=== PATIENT | female | born 1945 | race Caucasian/White ===

== ENCOUNTER 2016-06-11 16:30 | Emergency (ER) | payer MEDICARE ==
[~2016-06-11] VITALS: Ht 165.1 cm; Wt 70.2 kg
[~2016-06-11 16:30] MED LIST: CLON0.5T PO; DILT120C3 PO; GREE1CAP PO; LAMO25TA3 PO; LITH300C45 PO; VALS160T13 PO
[2016-06-11 16:32] VITALS: Ht 165.1 cm; Wt 70.2 kg
--- OUTSIDE RECORDS SUMMARY | 2016-06-11 16:35 | XMS REPORT | Continuity of Care Document ---
Author Author [facility] Organization [facility] Address Unknown Phone Unavailable Support Name Relationship Address Phone MANDA GUADARRAMA MD Caregiver [address] [facility] [place] [address] BARBARA ARDNO MD Caregiver [address] [facility] [place], [place] [phone] KAMALA VANEGAS Next Of Kin [address] [id number] Insurance Providers Payer Name Policy Number Subscriber Name Relationship Medicare [id number] Kasey Vanegas 19 Self Everencemma [id number] Kasey Vanegas 19 Self Advance Directives Directive Response Recorded Date/Time Advanced Directives Type None 08/20/13 8:45am Problems Medical Problems Problem Onset Date Status Chemical conjunctivitis Unknown Active Arrhythmia Unknown Active Arrhythmia Unknown Active Medications Medication Dose Route Sig Days/Qty Instructions Order Date Discontinued Date Status Valsartan 160 Mg PO DAILY 09/21/11 Active [place] Carbonate 300 Mg PO THREE TIMES A DAY 09/21/11 Active Green Tea [place] Extract 1 Each PO DAILY 09/21/11 Active Social History Social History Problem Response Recorded Date/Time Smoking Status Never smoker 08/20/2013 8:57am Chewing Tobacco Status No 08/20/2013 8:57am Hx Alcohol Use No 08/20/2013 8:57am Hospital Discharge Instructions No hospital discharge instructions. Plan of Care No plan of care. Functional Status Query Response Date Recorded Mental Status Alert August 20, 2013 9:56am Allergies, Adverse Reactions, Alerts Allergen Type Severity Reaction Status Last Updated Sulfa (Sulfonamide Antibiotics) Allergy Unknown Active 08/20/13 Immunizations No immunization records. Vital Signs Acute Vital Signs Vital Response Date/Time Temperature (Fahrenheit) 97.6 deg F (96.8 - 99.1) Temperature (Calculated Celsius) 36.24150 degrees C (36.0 - 37.3) Pulse Rate (adult) 78 bpm (60 - 100) Respiratory Rate 18 breaths/min (10 - 20) O2 Sat by Pulse Oximetry 97 % (90 - 100) Blood Pressure 127/59 mm Hg Height 5 ft 5 in Weight 186 lb Body Mass Index 31.0 kg/m^2 Results Test Source Date Result Interp. Ref. Range Comments Alanine Aminotransferase (ALT/SGPT) August 20, 2013 9:11am 34 U/L N 9-52 Albumin August 20, 2013 9:11am 4.2 G/DL N 3.5-5.0 Albumin/Globulin Ratio August 20, 2013 9:11am 1.4 RATIO N 1.1-2.2 Alkaline Phosphatase August 20, 2013 9:11am 84 U/L N 38-126 Anion Gap August 20, 2013 9:11am 14 MEQ/L N 5-15 Aspartate Amino Transf (AST/SGOT) August 20, 2013 9:11am 24 U/L N 14-36 BUN/Creatinine Ratio August 20, 2013 9:11am 20 RATIO N 6-26 Basophils # (Auto) August 20, 2013 9:11am 0.0 T/MM3 N 0-0.2 Basophils (%) (Auto) August 20, 2013 9:11am 0.3 % N 0-2 Blood Urea Nitrogen August 20, 2013 9:11am 20.0 MG/DL H 7-17 Calcium Level August 20, 2013 9:11am 9.8 MG/DL N 8.4-10.2 Calculated Osmolality August 20, 2013 9:11am 287 MOSM/KG H 261-280 Carbon Dioxide Level August 20, 2013 9:11am 22 MEQ/L N 22-30 Chloride Level August 20, 2013 9:11am 112 MEQ/L H 98-107 Cholesterol Level October 05, 2007 5:30am 261 MG/DL H 120-200 Cholesterol/HDL Ratio October 05, 2007 5:30am 6.0 RATIO H 0-4.0 Creatine Kinase MB October 04, 2007 7:15pm 0.2 NG/ML N 0-3.4 Creatinine August 20, 2013 9:11am 1.0 MG/DL N 0.7-1.2 Eosinophils # (Auto) August 20, 2013 9:11am 0.2 T/MM3 N 0-0.5 Eosinophils (%) (Auto) August 20, 2013 9:11am 2.4 % N 0-4 Ferritin December 11, 2007 7:57am 200 NG/ML N 10-265 Free Thyroxine December 11, 2007 7:57am 0.60 NG/DL L 0.78-2.19 Free Triiodothyronine December 11, 2007 7:57am 2.84 PG/ML N 2.77-5.27 Globulin August 20, 2013 9:11am 3.0 G/DL N 2.4-3.6 Glucose Level August 20, 2013 9:11am 97 MG/DL N 65-110 Hematocrit August 20, 2013 9:11am 39.8 % N 36-46 Hemoglobin August 20, 2013 9:11am 13.2 GM/DL N 12-16 Hemoglobin A1c October 05, 2007 5:30am 5.2 % L 6-7 <6.0 NON-DIABETIC RANGE6.0-7.0 ADA THERAPEUTIC RANGE >7.0 ACTION SUGGESTED Iron Level December 11, 2007 7:57am 72 UG/DL N 37-170 LDL Cholesterol, Calculated October 05, 2007 5:30am 139.0 - [place] Level October 04, 2007 5:50am 0.8 MMOL/L N 0.6-1.2 Lymphocytes # (Auto) August 20, 2013 9:11am 1.9 T/MM3 N 1-4.8 Lymphocytes (%) (Auto) August 20, 2013 9:11am 27.7 % N 23-45 Magnesium Level October 04, 2007 5:50am 2.4 MG/DL H 1.6-2.3 Mean Corpuscular Hemoglobin August 20, 2013 9:11am 27.3 UUG N 26-34 Mean Corpuscular Hemoglobin Concent August 20, 2013 9:11am 33.2 GM/DL N 31 -37 Mean Corpuscular Volume August 20, 2013 9:11am 82.2 UM3 N 80-100 Mean Platelet Volume August 20, 2013 9:11am 9.2 UM3 L 9.4-12.4 Monocytes # (Auto) August 20, 2013 9:11am 0.6 T/MM3 N 0-0.8 Monocytes (%) (Auto) August 20, 2013 9:11am 8.5 % N 0-9.0 Neutrophils # (Auto) August 20, 2013 9:11am 4.2 T/MM3 N 1.8-7.7 Neutrophils (%) (Auto) August 20, 2013 9:11am 60.8 % N 33-66 Percent Iron Saturation December 11, 2007 7:57am 23 % N 9-55 Platelet Count August 20, 2013 9:11am 198 T/MM3 N 130-400 Potassium Level August 20, 2013 9:11am 4.1 MEQ/L N 3.6-5 RDW Standard Deviation August 20, 2013 9:11am 48.9 FL N 36.9-50.2 Red Blood Count August 20, 2013 9:11am 4.84 M/MM3 N 4.00-5.20 Sodium Level August 20, 2013 9:11am 148 MEQ/L H 134-144 Thyroid Stimulating Hormone (TSH) December 11, 2007 7:57am 4.02 MIU/ML N 0.47-4.68 Total Bilirubin August 20, 2013 9:11am 0.20 MG/DL N 0.20-1.30 Total Creatine Kinase October 04, 2007 7:15pm 93 U/L N 30-135 Total Iron Binding Capacity December 11, 2007 7:57am 311 UG/DL N 261-497 Total Protein August 20, 2013 9:11am 7.2 G/DL N 6.3-8.2 Triglycerides Level October 05, 2007 5:30am 405 MG/DL H 0-150 Troponin I August 20, 2013 9:11am < 0.012 ng/ml 0-0.12 Urine Bilirubin October 04, 2007 6:24am Negative - Has specimen been collected/obtained? Y Urine Blood October 04, 2007 6:24am Negative - Has specimen been collected/obtained? Y Urine Collection Type October 04, 2007 6:24am Voided - Has specimen been collected/obtained? Y Urine Color October 04, 2007 6:24am Yellow - Has specimen been collected/obtained? Y Urine Glucose (UA) October 04, 2007 6:24am Negative - Has specimen been collected/obtained? Y Urine Ketones October 04, 2007 6:24am Negative - Has specimen been collected/obtained? Y Urine Leukocyte Esterase October 04, 2007 6:24am Negative - Has specimen been collected/obtained? Y Urine Nitrite October 04, 2007 6:24am Negative - Has specimen been collected/obtained? Y Urine Protein October 04, 2007 6:24am Negative - Has specimen been collected/obtained? Y Urine RBC October 04, 2007 6:24am Not Performed - Urine Specific [place] October 04, 2007 6:24am 1.005 L - Has specimen been collected/obtained? Y Urine Turbidity October 04, 2007 6:24am Clear - Has specimen been collected/obtained? Y Urine Urobilinogen October 04, 2007 6:24am Normal EU/DL - Has specimen been collected/obtained? Y Urine WBC October 04, 2007 6:24am Not Performed - Urine pH October 04, 2007 6:24am 7.0 - Has specimen been collected/ obtained? Y VLDL Cholesterol October 05, 2007 5:30am 81.0 MG/DL H 0-28 Vitamin B12 Level December 11, 2007 7:57am 460 PG/ML N 239-931 White Blood Count August 20, 2013 9:11am 6.9 T/MM3 N 4.5-11.0 Chemistry Specimen Hemolysis August 20, 2013 9:11am < 15 0-25 0-25: No Hemolysis.26-70: Slight Hemolysis - can falsely elevate K and Urine Protein. 71-285: Moderate Hemolysis - can falsely elevate K, Troponin I, CA 19-9, PTH, CSF GLucose, and Urine Protein, and can falsely decrease Phenytoin. 286-999: Gross Hemolysis - can falsely elevate K, Troponin I, CA 19-9, PTH, CSF Glucose, and Urine Protine, and can falsely decrease Phenytoin. Recommend specimen recollection. Cholesterol (VAP) December 11, 2007 7:57am Send out - RBC Magnesium Report Limit December 11, 2007 7:57am Send out - Lab Scanned Report August 17, 2013 2:01pm LAB TEST FORM REQUEST [id number] - EKG October 04, 2007 11:00am Complete - HDL Cholesterol Direct October 05, 2007 5:30am 41 MG/DL N 40-60 Turbidity August 20, 2013 9:11am < 20 0-20 Glomerular Filtration Rate Calc August 20, 2013 9:11am 55 - Immature Granulocyte # (Auto) August 20, 2013 9:11am 0.02 T/MM3 N 0.00- 0.03 Immature Granulocyte % (Auto) August 20, 2013 9:11am 0.3 % N 0.0-0.5 Icterus Index August 20, 2013 9:11am < 2 0-7 SW-Kuu-B-Type Natriuretic Peptide August 20, 2013 9:11am 77 PG/ML N 0-175 Rule in cut points: <50 years old=450; 50-75 years old=900; >75 years old=1800; When utilizing ProBNP rule-in cut points, adjustment for impaired renal function is typically not required. Gram Stain Finger-Right Fifth July 21, 2010 10:30am Procedures No known history of procedures. Encounters Encounter Location Date/Time Departed Emergency Room [facility] 08/20/13 8:39am [facility] 08/17/13 11:02am Departed Emergency Room [facility] 07/04/13 2:23am Recent Diagnosis
--- OUTSIDE RECORDS SUMMARY | 2016-06-11 16:35 | XMS REPORT | Continuity of Care Document ---
Author Author [facility] Organization [facility] Address Unknown Phone Unavailable Care Team Providers Care Meatman Name Role Phone ELO MIDDLETON DO Primary Care Physician [phone] Insurance Providers Guarantor Kasey Vanegas Address [address] [address] Email DENIED/NO PORTAL Payer [employer] Gold Hmo Policy Number [id number] Subscriber's Name Kasey Vanegas Relationship 18 Self Effective Date 11 Advance Directives Directive Response Recorded Date/Time Advanced Directives Type None 08/20/13 8:45am Chief Complaint and Reason for Visit Chief Complaint Eye Problems Reason for Visit Chemical conjunctivitis Problems Active Problems Medical Problem Onset Date Status Arrhythmia Unknown Acute Arrhythmia Unknown Acute Chemical conjunctivitis Unknown Acute Medications Current Home Medications Medication Dose Units Route Directions Days Qty Instructions Start Date Clonazepam (Klonopin) 0.5 Mg Tablet 1 Tab Oral As Needed 12/20/15 Diltiazem Hcl (Diltiazem 24HR Er) 120 Mg Cap.er.24h 1 Tab Oral Daily 12/20/15 Green Tea [place] Extract (Cardio Tea) 1 Each Capsule 1 Each Oral Daily 09/21/11 Lamotrigine (Lamictal) 25 Mg Tablet 1 Tab Oral Three Times A Day 12/20/15 [place] Carbonate 300 Mg Capsule 300 Mg Oral Three Times A Day Valsartan (Diovan) 160 Mg Tablet 160 Mg Oral Daily 09/21/11 Social History Social History Problem Response Recorded Date/Time Onset Date Status Chewing Tobacco Status No 08/20/2013 8:57am Not Applicable Not Applicable Hx Substance Use No 12/20/2015 2:21am Not Applicable Not Applicable Hx Alcohol Use No 12/20/2015 2:21am Not Applicable Not Applicable Tobacco Usage none 08/20/2013 9:32am Not Applicable Not Applicable Query Response Start Date Stop Date Smoking Status Never smoker Hospital Discharge Instructions No hospital discharge instructions. Plan of Care Discharge Date 12/20/15 2:43am Disposition 01 DISCHARGED HOME, SELF-CARE Condition at Discharge Improved Instructions/Education Provided DI for Chemical Eye Burn Prescriptions See Medication Section Referrals BARBARA ARDON MD Address: [address] [place] [id number] ELO MIDDLETON DO Additional Instructions/Education Keep eye patch in place for the rest of the night May use [place] 5 mg one to 2 tablets every 6 hours as needed for pain See Dr. Veloz at his office tomorrow morning at 8:30 AM Care Plan and Goals Physician Care Plan Problem: Chemical conjunctivitis Goal: Follow up with primary care provider Instructions: Take medications and follow care plan as discussed/written Keep eye patch in place for the rest of the night May use [place] 5 mg one to 2 tablets every 6 hours as needed for pain See Dr. Veloz at his office tomorrow morning at 8:30 AM Functional Status No functional status results. Allergies, Adverse Reactions, Alerts Allergen Type Severity Reaction Status Last Updated Sulfa (Sulfonamide Antibiotics) Allergy Unknown Active 12/20/15 Immunizations Query Response on File Recorded Date/Time Tdap Vaccine Hx UTD PER PT 12/20/15 2:23am Vital Signs Acute Vital Signs Vital Response Date/Time Temperature (Fahrenheit) 98.4 deg F (96.8 - 99.1) 12/20/2015 2:14am Temperature (Calculated Celsius) 36.61697 degrees C (36.0 - 37.3) 12/20/2015 2:14am Pulse Rate (adult) 98 bpm (60 - 100) 12/20/2015 2:14am Respiratory Rate 17 breaths/min (10 - 20) 12/20/2015 2:14am O2 Sat by Pulse Oximetry 99 % (90 - 100) 12/20/2015 2:14am Blood Pressure 174/88 mm Hg 12/20/2015 2:14am Height (Feet) 5 feet 12/20/2015 2:14am Height (Inches) 5.00 inches 12/20/2015 2:14am Weight (Kilograms) 82.000 kg 12/20/2015 2:14am Body Mass Index (BMI) 30.0 12/20/2015 2:14am Results No known relevant diagnostic tests, laboratory data and/or discharge summary. Procedures No known history of procedures. Encounters Encounter Location Arrival/Admit Date Discharge/Depart Date Attending Provider Departed Emergency Room [facility] 12/20/15 1:59am 12/20/15 2: 43am JENSEN PAEZ MD Recent Diagnosis
--- OUTSIDE RECORDS SUMMARY | 2016-06-11 16:35 | XMS REPORT | Continuity of Care Document ---
Author Author [facility] Organization [facility] Address Unknown Phone Unavailable Allergies Active Description Code Type Severity Reaction Onset Reported/Identified Relationship to Patient Clinical Status Yes No Known Allergies MED N/A N/A Medications Medication Packaging Start Date Stop Date Route Dosage Sig Nystop 516502 UNIT/GM External Powder UD 03/02/2015 04/02/2015 APPLY EXTERNALLY 254552QLQT/GM APPLY 2-3 TIMES DAILY TO AFFECTED AREA(S). LaMICtal XR 25 MG Oral Tablet Extended Release 24 Hour 03/02/2015 08/30/2015 ORAL 25MG Take 3 tabs at bedtime LamoTRIgine ER 25 MG Oral Tablet Extended Release 24 Hour 02/16/2016 02/23/2016 ORAL 25MG TAKE 3 TABLETS BY MOUTH DAILY. PLEASE REMIND APT FEB 21 AT 1PM LamoTRIgine ER 25 MG Oral Tablet Extended Release 24 Hour UD 02/22/2016 08/21/2016 ORAL 25MG TAKE 3 TABLETS BY MOUTH DAILY. ClonazePAM 0.5 MG Oral Tablet UD 02/22/2016 05/23/2016 ORAL 0.5MG Take 1 po PRN for anxiety. Problems Date Dx Coded Attending Type Code Diagnosis Diagnosed By 03/02/2015 F E03.9 Hypothyroidism, unspecified Ron Estephania 03/02/2015 F F33.1 Major depressive disorder, recurrent, moderate Cassandra Medina Cristin 03/02/2015 F 244 ACQUIRED HYPOTHYROIDISM Cassandra Medina 03/02/2015 F V71.09 NO DIAGNOSIS Cassandra Medina 03/02/2015 F E03.9 Hypothyroidism, unspecified AlstromPippa 03/02/2015 F E11 Type 2 diabetes mellitus Ron Estephania 03/02/2015 F E66.3 Overweight Ron Estephania 03/02/2015 F F33.1 Major depressive disorder, recurrent, moderate Ron, Estephania 03/02/2015 F I49.9 Cardiac arrhythmia, unspecified Ron Estephania 03/03/2015 F F33.1 Major depressive disorder, recurrent, moderate AlstromPippa M 08/22/2015 F E03.9 Hypothyroidism, unspecified 08/22/2015 F F33.1 Major depressive disorder, recurrent, moderate 08/23/2015 F E03.9 Hypothyroidism, unspecified 02/22/2016 F F33.1 Major depressive disorder, recurrent, moderate Maddi Gomez 02/22/2016 F E03.9 Hypothyroidism, unspecified Maddi Gomez A 02/22/2016 F E03.9 Hypothyroidism, unspecified Psy, Batch 02/22/2016 F F33.1 Major depressive disorder, recurrent, moderate Psy, Batch Procedures Code Description [place] [address] OFFICE/OUTPATIENT VISIT, Estephania Reynolds 03/02/2015 84418 OFFICE/OUTPATIENT VISIT, Estephania Reynolds 03/02/2015 42394 OFFICE/OUTPATIENT VISIT, Estephania Reynolds 08/22/2015 04600 OFFICE/OUTPATIENT VISIT, Estephania Reynolds 08/22/2015 83954 OFFICE/OUTPATIENT VISIT, Estephania Reynolds 02/22/2016 [id number] OFFICE/OUTPATIENT VISIT, Estephania Reynolds 02/22/2016 Results Encounters ACCT No. Visit Date/Time Discharge Status Pt. Type Provider Facility Loc./Unit Complaint [id number] 04/12/2013 17:06:00 04/12/2013 23 :59:59 CLS Outpatient
--- OUTSIDE RECORDS SUMMARY | 2016-06-11 16:53 | XMS REPORT | Continuity of Care Document ---
Author Author [facility] Organization [facility] Address Unknown Phone Unavailable Allergies Active Description Code Type Severity Reaction Onset Reported/Identified Relationship to Patient Clinical Status Yes No Known Allergies MED N/A N/A Medications Medication Packaging Start Date Stop Date Route Dosage Sig Nystop 745596 UNIT/GM External Powder UD 03/02/2015 04/02/2015 APPLY EXTERNALLY 496801INHT/GM APPLY 2-3 TIMES DAILY TO AFFECTED AREA(S). [...] Procedures Code Description [place] [address] OFFICE/OUTPATIENT VISIT, Estephania Reynolds 03/02/2015 85559 OFFICE/OUTPATIENT VISIT, Estephania Reynolds 03/02/2015 97943 OFFICE/OUTPATIENT VISIT, Estephania Reynolds 08/22/2015 48888 OFFICE/OUTPATIENT VISIT, Estephania Reynolds 08/22/2015 24956 OFFICE/OUTPATIENT VISIT, Estephania Reynolds 02/22/2016 32737 OFFICE/OUTPATIENT VISIT, Estephania Reynolds 02/22/2016 Results Encounters ACCT No. Visit Date/Time Discharge Status Pt. Type Provider Facility Loc./Unit Complaint [id number] 04/12/2013 17:06:00 04/12/2013 23 :59:59 CLS Outpatient
--- OUTSIDE RECORDS SUMMARY | 2016-06-11 16:53 | XMS REPORT | Continuity of Care Document ---
Author Author [facility] Organization [facility] Address Unknown Phone Unavailable Support Name Relationship Address Phone MANDA GUADARRAMA MD Caregiver [address] [facility] [facility] [address] [facility] [place] [address] BARBARA ARDON MD Caregiver [address] [facility] [place], [place] [phone] KAMALA VANEGAS Next Of Kin [address] [id number] Insurance Providers Payer Name Policy Number Subscriber Name Relationship Medicare [id number] Kasey Vanegas 19 Self [place] [id number] Kasey Vanegas 19 Self Advance Directives Directive Response Recorded Date/Time Advanced Directives Type None 08/20/13 8:45am Problems Medical Problems Problem Onset Date Status Chemical conjunctivitis Unknown Active Arrhythmia Unknown Active Arrhythmia Unknown Active Medications Medication Dose Route Sig Days/Qty Instructions Order Date Discontinued Date Status Valsartan 160 Mg PO DAILY 09/21/11 Active [place] Carbonate 300 Mg PO THREE TIMES A DAY 09/21/11 Active Green Tea [place] Extract 1 Each PO DAILY 09/21/11 Active [...] F (96.8 - 99.1) Temperature (Calculated Celsius) 36.97396 degrees C (36.0 - 37.3) Pulse Rate [...] Calculated October 05, 2007 5:30am 139.0 - [place] Level October 04, 2007 5:50am 0.8 MMOL/L [...] 2007 6:24am Not Performed - Urine Specific [place] October 04, 2007 6:24am 1.005 L - [...] 17, 2013 2:01pm LAB TEST FORM REQUEST [id number] - EKG October 04, 2007 11:00am Complete [...] August 20, 2013 9:11am < 2 0-7 [id number]-Type Natriuretic Peptide August 20, 2013 9:11am 77 PG/ML N 0-175 Rule in cut points: <50 years old=450; 50-75 years old=900; >75 years old=1800; When utilizing ProBNP rule-in cut points, adjustment for impaired renal function is typically not required. Gram Stain Finger-Right [place] July 21, 2010 10:30am Procedures No known history of procedures. Encounters Encounter Location Date/Time Departed Emergency Room [facility] 08/20/13 8:39am [facility] 08/17/13 11:02am Departed Emergency Room [facility] 07/04/13 2:23am Recent Diagnosis
--- NOTE | 2016-06-11 16:58 | NUR ---
XRY PORTABLE XRY AT BEDSIDE.
--- NOTE | 2016-06-11 16:58 | NUR ---
REPORT RECEIVED FROM CHANELL FRIAS. CARE ASSUMED.
--- NOTE | 2016-06-11 16:59 | NUR ---
DR DR MEZA AT BEDSIDE.
[2016-06-11 17:00] LABS: BASOPHILS % (AUTO) 0.3 % (0-2); EOSINOPHILS # (AUTO) 0.3 T/MM3 (0-0.5); EOSINOPHILS % (AUTO) 4.1 % (0-4); HCT - HEMATOCRIT 37.8 % (36-46); HGB - HEMOGLOBIN 12.4 GM/DL (12-16); IMMATURE GRANULOCYTE # (AUTO) 0.02 T/MM3 (0.00-0.03); IMMATURE GRANULOCYTE % (AUTO) 0.3 % (0.0-0.5); LYMPHOCYTES # (AUTO) 1.9 T/MM3 (1-4.8); LYMPHOCYTES % (AUTO) 30.1 % (23-45); MEAN CORPUSCULAR HGB 27.7 UUG (26-34); MEAN CORPUSCULAR HGB CONC(MCHC 32.8 GM/DL (31-37); MEAN CORPUSCULAR VOLUME 84.6 UM3 (80-100); MEAN PLATELET VOLUME 9.6 UM3 (9.4-12.4); MONOCYTES # (AUTO) 0.6 T/MM3 (0-0.8); MONOCYTES % (AUTO) 9.6 % (0-9.0); NEUTROPHILS #(AUTO)-ABSOLUTE 3.4 T/MM3 (1.8-7.7); NEUTROPHILS % (AUTO) 55.6 % (33-66); RED BLOOD COUNT 4.47 M/MM3 (4.00-5.20); WBC - WHITE BLOOD COUNT 6.1 T/MM3 (4.5-11.0)
[2016-06-11] MEDS ORDERED: NORMAL SALINE 500 ML IV ONE ×2 (17:00→17:45)
[2016-06-11 17:09] LABS: ANION GAP 13 MEQ/L (5-15); BUN/CREATININE RATIO 30 RATIO (6-26); CALCIUM 9.5 MG/DL (8.4-10.2); CHLORIDE 106 MEQ/L (98-107); CO2 - CARBON DIOXIDE 26 MEQ/L (22-30); CREATININE 1.1 MG/DL (0.7-1.2); GLOMERULAR FILTRATION RATE 49; GLUCOSE 171 MG/DL (65-110); POTASSIUM 4.2 MEQ/L (3.6-5); SODIUM 145 MEQ/L (134-144)
--- NOTE | 2016-06-11 17:11 | ERPDOC ---
Departure Disposition Decision Date: Jun 11, 2016 Disposition Decision Time: 19:03 () Disposition: 01 DISCHARGED HOME, SELF-CARE Impression Impression (YULIANA OLIVAREZ DO) Impression: Primary Impression: Heart palpitations Severity: Moderate () Condition: Improved Seen By: Physician only () Referrals: ELO MIDDLETON DO (PCP) 1 Week DYLAN SOL (Family) Patient Instructions: Palpitations (ED) Problems/Meds/Labs Reviewed?: Yes Medications reviewed and manag: Yes () Additional Instructions: We did not find a cause of your palpitations tonight. Follow up with your doctor later this week. Mental Status: Alert, Oriented (YULIANA OLIVAREZ DO) Follow up care ordered?: Yes Mental Status: Alert, Oriented () HPI - Cardiac General Chief Complaint: Palpitations Stated Complaint: IRREGULAR HEARTBEAT Time Seen by Provider: 16:34 Source: patient (Patient presents to the ER with palpitations, which apparently began at approx 3 pm today. Patient denies chest pain or SOA, but complains of intermittant left scapular pain, which the patient states is chronic. ), other (Patient also reports flu symptoms for the past week, which has resolved) Exam Limitations: no limitations (YULIANA OLIVAREZ DO) Time Seen by Provider: 18:59 () HPI - Cardiac General Occurred At: home Onset/Timing: Changing over time Duration: 1-3 hrs Pain/Severity Scale: Now: 0/10, Worst: Unable to Rate Location: back (Left scapula, which the patient states is chronic) Activities at Onset/Context: activity Prior CP/Workup: other (Evaluated in 2013 for similar, patient cannot tell me what tests were done, but tells me the tests were negative) Nitro Today/Relief: no nitro taken today Aspirin Today: 325 mg x 1, provided by ED Associated Symptoms: cough, DENIES: chest pain, diaphoresis, fever/chills, headaches, loss of appetite, malaise, nausea/vomiting, rash, seizure, shortness of breath, syncope, weakness Hx of Similar Symptoms: Yes (YULIANA OLIVAREZ DO) Allergies: Coded Allergies: Sulfa (Sulfonamide Antibiotics) (Verified Allergy, Unknown, 4/25/17) Past History Past Medical History Metabolic: hypertension Psychological: bipolar (DERRICK,YULIANA DO) Surgical History Denies Surgeries (DERRICKYULIANA DO) Social History Smoking Status: Unknown if ever smoked Does patient use chewing tobac: No Second Hand Exposure: No Substance Use Type: does not use Alcohol Intake: none Housing: house Service: No Occupational Hazard: No Advance Directives: Yes Full Code (DERRICKYULIANA DO) Record Review Pertinent history updated: Yes (DERRICK,YULIANA DO) Review of Systems Constitutional Constitutional: DENIES: chills, fever (DERRICK,YULIANA DO) Eyes Lids/Accessories: DENIES: erythema, swelling (DERRICK,YULIANA DO) ENMT Ears: DENIES: erythema, pain Balance: DENIES: ataxia, vertigo Sinuses: DENIES: congestion, rhinorrhea Mouth/Throat: DENIES: sore throat (DERRICK,YULIANA DO) Cardiovascular Cardiac: DENIES: chest pain, dyspnea on exertion, orthopnea Rhythm/Rate: tachycardia (DERRICK,YULIANA DO) Pulmonary Respiratory: cough, DENIES: dyspnea, sputum (DERRICK,YULIANA DO) GI Upper Abdomen: DENIES: nausea, pain, vomiting Lower Abdomen: DENIES: constipation, diarrhea, pain (DERRICK,YULIANA DO) General: DENIES: dysuria (DERRICK,YULIANA DO) Musculoskeletal General: DENIES: cramps, pain, weakness (DERRICK,YULIANA DO) Integumentary Skin: DENIES: color change, itching, rash (DERRICK,YULIANA DO) Neurological General: DENIES: ataxia, change in strength, headache, numbness, poor coordination, seizures, syncope, vertigo, weakness (DERRICK,YULIANA DO) Psychiatric Psychiatric: DENIES: anxiety, depression, nervousness (DERRICK,YULIANA DO) Hematologic/Lymphatic Hematologic/Lymphatic: DENIES: anemia (DERRICK,YULIANA DO) Allergic/Immunological Allergic/Immunoligical: DENIES: sneezing (DERRICK,YULIANA DO) All other Systems All Other Systems: Reviewed and Negative (DERRICK,YULIANA DO) Physical Exam General General Nourishment: well nourished, well developed, appears stated age, adult General Body Habitus: well groomed (DERRICK,YULIANA DO) Vitals and Pain First Documented Vital Signs Date Time Temp Pulse Resp B/P Pulse Ox O2 Delivery O2 Flow Rate FiO2 06/11/16 16:32 98.6 104 18 166/76 99 Room Air ( DO) Vitals and Pain Weight: Kilograms: Height (feet): 5 Height (inches): 5.00 Triage Pain Scale: (DERRICK,YULIANA DO) RN VS reviewed by Provider: Yes (DERRICK,YULIANA DO) Eyes (brief) Eyes Brief: found: EOMI, PERRL (DERRICK,YULIANA DO) ENMT (brief) ENMT Brief: FOUND: TM clear, TM good light reflex, mucosa moist, NOT FOUND: pharnyx erythema (DERRICK,YULIANA DO) Neck (brief) Neck: FOUND: trachea midline, NOT FOUND: adenopathy, tenderness, tracheal deviation (DERRICK,YULIANA DO) Respiratory (brief) Respiratory: FOUND: clear all mccrary, equal bilaterally (DERRICK,YULIANA DO) Cardiovascular (brief) Cardiac: FOUND: regular rate, regular rhythm Capillary Refill: <2 sec Pulses: all distal extremities, equal, strong (DERRICK,YULIANA DO) Abdomen (brief) Abdominal Brief: FOUND: bowel normo active x4, soft, NOT FOUND: distended, tender (DERRICK,YULIANA DO) Lymphatic (brief) Lymphatic Brief: NOT FOUND: adenopathy (DERRICK,YULIANA DO) Musculoskeletal (brief) Musculoskeletal Brief: NOT FOUND: spasm, tenderness (DERRICK,YULIANA DO) Integumentary (brief) Integumentary Brief: FOUND: other (Hyperpigmentation bilateral legs. Patient states this is chronic), pink, warm (DERRICK,YULIANA DO) Neurologic (brief) Neurological Brief: FOUND: CN w/o gross def to obs, gait w/o gross def to obs, motor-no gross deficits, sensory-no gross deficits, NOT FOUND: ataxia (DERRICK, YULIANA DO) Psychiatric (brief) Psychiatric Brief: FOUND: alert, attentive, normal affect, oriented (DERRICK, YULIANA DO) Differential Diagnoses Considering: Acute [place], Anxiety/Panic, Angina, Aortic Dissection, Atrial Fibrillation, Hyperventilation, Prolonged Qtc, PSVT, Pulmonary Edema, Pulmonary Embolus, Ventricular Tachycardia, WPW (YULIANA OLIVAREZ DO) Progress Results/Orders Orders Procedure Category Date Status Time Cbc W/Auto LAB 06/11/16 Complete Diff-Reflex Manual 16:45 Bmp - Basic Metabolic LAB 06/11/16 Complete Panel 16:45 Tsh - Thyroid Stim LAB 06/11/16 Complete Hormone 16:45 Troponin I W LAB 06/11/16 Complete Hemolysis Index 16:45 Iv Lock (Ed Only) EDM 06/11/16 Transmitted 16:45 Normal Saline (Ns) PHA 06/11/16 Complete 17:00 Chest 1 View RAD 06/11/16 Taken D-Dimer LAB 06/11/16 Complete Normal Saline (Ns) PHA 06/11/16 Complete 17:45 Cta Pe/Cta Aorta CT 06/11/16 Taken 17:46 Iohexol (Omnipaque) PHA 06/11/16 Complete 17:55 Normal Saline (Ns) PHA 06/11/16 Complete 17:55 Saline Flush (Iv PHA 06/11/16 Complete Flush) 17:55 EKG EKG 06/11/16 Taken ([facility] DO) Lab Results Laboratory Tests Test 06/11/16 16:54 White Blood Count 6.1T/MM3 Red Blood Count 4.47M/MM3 Hemoglobin 12.4GM/DL Hematocrit 37.8% Mean Corpuscular Volume 84.6UM3 Mean Corpuscular Hemoglobin 27.7UUG Mean Corpuscular Hemoglobin Concent 32.8GM/DL RDW Standard Deviation 49.3FL Platelet Count 195T/MM3 Mean Platelet Volume 9.6UM3 Immature Granulocyte % (Auto) 0.3% Neutrophils (%) (Auto) 55.6% Lymphocytes (%) (Auto) 30.1% Monocytes (%) (Auto) 9.6% Eosinophils (%) (Auto) 4.1% Basophils (%) (Auto) 0.3% Absolute Immature Granulocyte (auto 0.02T/MM3 Absolute Neutrophils (auto) 3.4T/MM3 Absolute Lymphocytes (auto) 1.9T/MM3 Absolute Monocytes (auto) 0.6T/MM3 Absolute Eosinophils (auto) 0.3T/MM3 Absolute Basophils (auto) 0.0T/MM3 D-Dimer 358NG/ML Turbidity < 20 Sodium Level 145MEQ/L Potassium Level 4.2MEQ/L Chloride Level 106MEQ/L Carbon Dioxide Level 26MEQ/L Anion Gap 13MEQ/L Blood Urea Nitrogen 33.0MG/DL Creatinine 1.1MG/DL Glomerular Filtration Rate Calc 49 BUN/Creatinine Ratio 30RATIO Glucose Level 171MG/DL Calculated Osmolality 290MOSM/KG Calcium Level 9.5MG/DL Icterus Index < 2 Troponin I < 0.012ng/ml Thyroid Stimulating Hormone (TSH) 3.86MIU/L Chemistry Specimen Hemolysis < 15 () Medications Current ED Medications Sodium Chloride 500 ml @ 0 mls/hr Q0M ONCE IV Last administered on 06/11/16t 17 :10; Start 06/11/16 at 17:00; Stop 06/11/16 at 17:01; Status DC Sodium Chloride (NS) 500 ml @ 0 mls/hr Q0M ONCE IV ; Start 06/11/16 at 17:45; Stop 06/11/16 at 17:46; Status DC Iohexol 1 bottle 1 bottle STK-MED ONCE .ROUTE ; Start 06/11/16 at 17:55; Stop at 17:56; Status DC Sodium Chloride (NS) 100 ml @ As Directed STK-MED ONCE .ROUTE ; Start 06/11/16 at 17:55; Stop 06/11/16 at 17:56; Status DC Sodium Chloride (Iv Flush) 10 ml STK-MED ONCE .ROUTE ; Start 06/11/16 at 17:55; Stop 06/11/16 at 17:56; Status DC () Progress Progress Assumed care of pt from Dr. Olivarez at 1800. Pts CT PA is negative for PE and aortic pathology. Will d/c to home with f/u with PCM. Discussed dx, prognosis, tx, and need for f/u with PCM. Pt voiced understanding; is eager to go home. () EKG EKG : Rate: >100 Rhythm: sinus Gamerco: normal QRS: normal Intervals: normal ST/T: non-specific changes Interpreted by: signing physician (YULIANA OLIVAREZ DO) Xray Xray : Reason for Exam: Palpitations Xray: CXR Portable Interpretation: Normal, Interpreted by Me (YULIANA OLIVAREZ DO) CT CT #1: CT: Abd/Pelvis IV contrast (PE and aorta) Interpretation: Normal, Reviewed Written Report CT #2: CT: Chest IV contrast Interpretation: Normal, Reviewed Written Report ( Cristin ) YULIANA OLIVAREZ DO Jun 11, 2016 17:11 JUNETERESSA DO Jun 11, 2016 19:03
[2016-06-11] MEDS ORDERED: LAMO25TA23 PO (17:25)
[2016-06-11] MEDS ORDERED: CLON0.5T4 PO (17:25)
[2016-06-11] MEDS ORDERED: DILT120C47 PO (17:25)
[2016-06-11] MEDS ORDERED: VALS160T25 PO (17:25)
--- NOTE | 2016-06-11 17:35 | NUR ---
DR DR MEZA AT BEDSIDE.
[2016-06-11 17:40] LABS: THYROID STIM HORMONE-TSH 3.86 MIU/L (0.47-4.68)
[2016-06-11] MEDS ORDERED: IOHEXOL 350 MG/ML 100ml INJECTION ONE (17:55)
[2016-06-11] MEDS ORDERED: SALINE FLUSH 10ml SYRINGE ONE (17:55)
[2016-06-11] MEDS ORDERED: NORMAL SALINE 100 ML ONE (17:55)
--- NOTE | 2016-06-11 17:56 | NUR ---
CT PT TO CT VIA RNEY.
--- NOTE | 2016-06-11 18:15 | NUR ---
CT PT RETURNED.
--- NOTE | 2016-06-11 18:45 | NUR ---
STATUS PT STATES "I AM FEELING BETTER." PT STATES SHE WOULD RATE THE SCAPULAR PAIN "ALMOST ZERO I THINK."
--- NOTE | 2016-06-11 19:09 | NUR ---
DR DR BENJAMIN AT BEDSIDE.
[2016-06-11 19:21] VITALS: BP 145/79; PULSE 93; RESP 16; TEMP 98.6; O2SAT 96
--- NOTE | 2016-06-11 19:21 | NUR ---
DISMISS PT AMBULATORY TO LOBBY, GAIT STEADY.
--- NOTE | 2016-06-12 08:09 | DI ---
Indication: ITS.REASON: Palpitations PROCEDURE: CHEST 1 VIEW: Encounter: Initial Comparison: August 20, 2013 FINDINGS: The lungs are clear. There is no abnormal airspace opacity, pleural effusion or pneumothorax identified. The heart size, pulmonary vasculature and mediastinum are within normal limits. No significant skeletal abnormality is seen. IMPRESSION: No acute cardiopulmonary abnormality. .
--- NOTE | 2016-06-12 08:18 | DI ---
Indication: ITS.REASON: Elevated D-Dimer, Left scapular pain, Palpitations PROCEDURE: CTA PE/CTA AORTA: Encounter: Initial Comparison: Chest x-ray from from the same date Technique: Axial CT angiographic imaging of the chest, abdomen and pelvis was performed before and after the administration of intravenous contrast. Coronal and sagittal MIP reconstructed images were created and reviewed. Three-dimensional surface shaded volume rendered imaging of the aorta and arterial vasculature was created by the technologist on a dedicated workstation under the direction of the interpreting radiologist and reviewed. CT angiography of the chest was also performed in the pulmonary angiographic phase with coronal and sagittal MIP reconstructed images created and reviewed Automated Exposure Control and Iterative Reconstruction dose reducing techniques were utilized. Contrast: 96 mL Omnipaque 350 Findings: CTA for PE: Pulmonary arteries: Exam is diagnostic to the subsegmental pulmonary arterial level. No filling defects identified to suggest a pulmonary embolus. Other findings: The lungs are clear apart from some linear atelectasis or scarring in the left lower lobe. No pleural effusion or pneumothorax. No pulmonary masses. The central airways are patent. No axillary or mediastinal adenopathy. Heart size is normal. No pericardial effusion. Coronary artery disease. There is a 1.6 cm asymmetric density in the inferior posterior aspect of the left breast best seen on sagittal image #16 and axial image #69. Impression: 1. No pulmonary embolus or acute intrathoracic disease process. 2. Asymmetric density in the posterior inferior left breast. Recommend correlation with diagnostic mammography and ultrasound as indicated. CTA chest for aorta: Findings: Noncontrast images show no evidence of intramural hematoma with scattered atherosclerotic plaque. Postcontrast images show no evidence of aortic aneurysm or dissection. Please see the CTA PE report for other details of the chest. 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 No aortic aneurysm or dissection. The visualized common, internal and sterile iliac arteries are widely patent. Hepatic arterial anatomy is conventional. Renal artery origins and celiac are patent. The arterial phase liver is unremarkable. Numerous gallstones within the gallbladder. The spleen, pancreas and adrenal glands are within normal limits. Innumerable tiny low-attenuation lesions in both kidneys, too small to characterize with some larger cysts also present. No abdominal or pelvic lymphadenopathy. The uterus is grossly normal. The visualized small and large bowel loops show no acute findings. Retroaortic left renal vein. Impression: 1. No evidence of acute aortic syndrome. 2. Cholelithiasis. 3. 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 There is a preliminary report by [employer]. .
== END 2016-06-11 19:21 | disposition home or self-care (01) ==
LOC: ED 16:30
DX: R00.2 Palpitations (principal); R05 Cough; R00.0 Tachycardia, unspecified; I10 Essential (primary) hypertension
CPT/HCPCS: 71010; 71275; 72175; 74175; 80048; 84443; 84484; 85025; 85379; 93005; 99284; J7050; Q9967

== ENCOUNTER → 2016-07-09 | Outpatient (CLI) | payer MEDICARE ==
[~2016-07-09] MED LIST changes: -CLON0.5T PO; +CLON0.5T4 PO; -DILT120C3 PO; +DILT120C47 PO; -GREE1CAP PO; +LAMO25TA23 PO; -LAMO25TA3 PO; -LITH300C45 PO; -VALS160T13 PO; +VALS160T25 PO
--- NOTE | 2016-07-09 08:54 | DI ---
Indication: ITS.REASON: Z87.[address], R10.11 RUQ PAIN PROCEDURE: US GALLBLADDER: Encounter: Initial Comparison: CT abdomen and pelvis dated June 11, 2016 Technique: Grayscale and color Doppler sonographic imaging of the right upper quadrant of the abdomen was performed. Findings: Hepatic parenchyma is homogeneous without evidence for focal mass. The gallbladder shows numerous shadowing gallstones. No gallbladder wall thickening or pericholecystic fluid. Sonographic Arteaga's sign was reportedly negative. Both the intra and extrahepatic biliary system are of normal caliber with the common duct measuring 3 mm in dimension. Visualized portions of the head and body of the pancreas are unremarkable. The right kidney is present without collecting system dilatation. The right kidney measures 10.5 cm in length. 1.8 cm simple appearing superior pole right renal cyst. Impression: Cholelithiasis without evidence of acute cholecystitis. .
== END ==
LOC: IMA 06:50
PROVIDERS: ATTEND Nurse Practitioner
DX: K80.20 Calculus of gallbladder without cholecystitis without obstruction (principal); R10.11 Right upper quadrant pain